=== PATIENT | female | born 1985 | race Caucasian/White ===

== ENCOUNTER 2021-09-22 09:18 | Emergency (ER) | payer OTHER, SELFPAY ==
[2021-09-22] MEDS ORDERED: Cyclobenzaprine 10 MG TAB ONE ×2 (10:52→11:00)
[2021-09-22] MEDS ORDERED: HYDROcodone/Acetaminophen 5/325 mg Tablet ONE ×2 (10:52→11:01)
[2021-09-22] MEDS ORDERED: Ketorolac Tromethamine 30 MG/ML VIAL ONE ×2 (10:52→11:00)
== END 2021-09-22 11:57 | disposition home or self-care (01) ==
LOC: CSHERS 09:18
DX: S33.8XXA Sprain of other parts of lumbar spine and pelvis, initial encounter (principal); F17.210 Nicotine dependence, cigarettes, uncomplicated; W01.0XXA Fall on same level from slipping, tripping and stumbling without subsequent striking against object, initial encounter; Y92.000 Kitchen of unspecified non-institutional (private) residence as the place of occurrence of the external cause
CPT/HCPCS: 72131; 72220; 96372; J1885